=== PATIENT | female | born 1990 | race Caucasian/White ===

== ENCOUNTER 2016-02-26 16:01 | Outpatient (CLI) | payer BC ==
[~2016-02-26] VITALS: Ht 170.2 cm; Wt 59.0 kg
[~2016-02-26 16:01] MED LIST: CEPHALEXIN MONOHYDRATE 500 MG CAP PO SCH
[2016-02-26] MEDS ORDERED: LACTATED RINGER'S 1000ML 500 ML IV ONE (16:26)
[2016-02-26] MEDS ORDERED: LACTATED RINGER'S 1000ML 1,000 ML IV SCH (16:26)
[2016-02-26 17:29] LABS: URINE APPEARANCE CLOUDY (CLEAR); URINE BILIRUBIN NEG (NEG); URINE COLOR DK YELLOW; URINE EPITHELIAL CELL AUTO >30 /lpf (0-5); URINE NITRITE NEG (NEG); URINE SPECIFIC GRAVITY 1.015 (1.000-1.030); UROBILINOGEN NEG (NEG); ZZUR CULT IF INDIC CLEAN CATCH YES
[2016-02-26 17:30] LABS: MANUAL MICROSCOPIC REQUIRED? NO; REVIEW REQ? NO
[2016-02-26] MEDS ORDERED: TERBUTALINE SULFATE 1 MG/ML VIAL SQ ONE (17:30)
[2016-02-26] MEDS ORDERED: TERBUTALINE SULFATE 1 MG/ML VIAL ONE (17:37)
[2016-02-26] MEDS ORDERED: CEPHALEXIN MONOHYDRATE 500 MG CAP PO SCH (20:00)
[2016-02-26] MEDS ORDERED: PRENTAB26 PO (20:12)
--- NOTE | 2016-02-26 20:14 | Discharge Instructions ---
Discharge Instructions Admission Reason for Admission: Bleeding Discharge Discharge Diagnosis / Problem: UTI Discharge Goals Goal(s): Continuing OB care Activity Recommendations Activity Limitations: as noted below Lifting Limitations: no more than 10 pounds Exercise/Sports Limitations: until after follow-up appointment May Resume Sexual Activity: after follow-up appointment Shower/Bathe: no limitations Driving or Machine Use: no limitations ACTIVITY RECOMMENDATIONS: See Labor Sheet. SPECIAL CARE INSTRUCTIONS: Call Doctor if: * Regular contractions every 5 minutes or greater than 4 contractions in one hour. * Bleeding * Water breaks or is leaking * Decreased movement * Fever >100.4 degrees F * Pain not relieved by routine measures or pain medication ordered. FOLLOW UP VISIT: Return to Labor and Delivery on for /call for appointment time . Follow-up Visit with: When: . Current Hospital Diet Patient's current hospital diet: Discharge Diet Recommended Diet: Regular Diet Pending Studies Studies pending at discharge: yes List of pending studies: Urine culture Call office on 02/27 morning Medical Emergencies . Who to Call and When: Medical Emergencies: If at any time you feel your situation is an emergency, please call 911 immediately. . Non-Emergent Contact Non-Emergency issues call your: Primary Care Provider, Community Support Associate Call Non-Emergent contact if: your pain is not controlled . . "Provider Documentation" section prepared by Vimal Romano. VTE Core Measure Inpt VTE Proph given/why not?: Treatment not indicated
[2016-02-26 20:50] VITALS: Ht 170.2 cm; Wt 59.0 kg
[2016-02-27] MEDS ORDERED: CEPHALEXIN 500MG HOME PACK 1 EA BTL PO SCH (04:00)
[2016-04-19] MEDS ORDERED: MTR600X PO (09:52)
== END 2016-02-26 21:00 | disposition home or self-care (01) ==
LOC: C.OPB 16:01 → EDBD 16:01 → C.OBG 16:01 → C.OPB 21:00
PROVIDERS: ATTEND Obstetrics & Gynecology
DX: O62.9 Abnormality of forces of labor, unspecified (principal); O99.283 Endocrine, nutritional and metabolic diseases complicating pregnancy, third trimester; E86.0 Dehydration; O99.333 Smoking (tobacco) complicating pregnancy, third trimester; Z3A.33 33 weeks gestation of pregnancy

== ENCOUNTER 2016-03-20 18:57 | Outpatient (CLI) | payer BC ==
[~2016-03-20] VITALS: Ht 167.6 cm; Wt 64.0 kg
[~2016-03-20 18:57] MED LIST changes: -CEPHALEXIN MONOHYDRATE 500 MG CAP PO SCH; +PRENTAB26 PO
[2016-03-20 19:51] VITALS: Ht 167.6 cm; Wt 64.0 kg
[2016-03-20] MEDS ORDERED: CITA10TA8 PO (19:55)
--- NOTE | 2016-03-20 20:14 | Progress Note ---
Progress Note 25 F P0000 at 36.5 weeks here for possible labor check. Cervix remains closed after no change from prior exam. FHT Cat 1. Will discharge home not in labor.
== END 2016-03-20 20:15 ==
LOC: C.OPB 18:57 → C.OBG 18:58 → C.OPB 20:15
PROVIDERS: ATTEND Obstetrics & Gynecology
DX: Z34.03 Encounter for supervision of normal first pregnancy, third trimester (principal)

== ENCOUNTER 2016-04-16 06:36 | Inpatient (IN) | payer BC ==
[~2016-04-16] VITALS: Ht 170.2 cm; Wt 66.0 kg
[~2016-04-16 06:36] MED LIST changes: +CITA10TA8 PO
[2016-04-16] MEDS ORDERED: LACTATED RINGER'S 1000ML 1,000 ML IV PRN (07:21)
[2016-04-16] MEDS ORDERED: MISOPROSTOL 25 MCG TAB PV ONE (07:30)
--- NOTE | 2016-04-16 07:42 | Progress Note ---
Progress Note Date of Service Apr 16, 2016. Progress Note Admit Note 25 F P0000 at 40.4 weeks admitted for induction of labor for growth lag and post-dates. GBS is negative. Cervix is finger-tip/70/-3/vertex/soft/ anterior. EFW 6-10. FHT Cat 1. Cytotec 25 mcg placed vaginally for cervical ripening.
[2016-04-16 07:58] LABS: HEMATOCRIT 37.6 % (37-47); MEAN CELL VOLUME 93.1 fL (80-100); MEAN CORPUSCULAR HEMOGLOBIN 33.4 pg (25-34); MEAN CORPUSCULAR HGB CONC 35.9 g/dl (32-36); MEAN PLATELET VOLUME 12.4 fL (7.4-10.4); PLATELET COUNT 213 K/uL (130-400); RED BLOOD COUNT 4.04 M/uL (4.2-5.4); WHITE BLOOD COUNT 17.23 K/uL (4.8-10.8)
[2016-04-16] MEDS ORDERED: [UNRECOGNIZED DRUG - CODE] (09:10)
[2016-04-16] MEDS ORDERED: VNTHFA/IN INH (09:11)
[2016-04-16 09:12] VITALS: Ht 170.2 cm; Wt 66.0 kg
--- NOTE | 2016-04-16 16:26 | Progress Note ---
Progress Note Date of Service Apr 16, 2016. Progress Note cervix 1.5/70/-3 T Cat 1
[2016-04-16] MEDS ORDERED: BUTORPHANOL TARTRATE 1 MG/ML VIAL IV PRN (20:30)
[2016-04-16] MEDS: LACTATED RINGER'S 1000ML 1,000 ML IV SCH (20:47)
[2016-04-16] MEDS ORDERED: EpHEDrine SULFATE INJ 50 MG/ML AMP ONE (23:39)
[2016-04-16] MEDS ORDERED: FENTANYL CITRATE INJ 50 MCG/1 ML 2 ML VIAL ONE (23:39)
[2016-04-16] MEDS ORDERED: FENTANYL 2MCG/ML ROPIV 1.25MG/ML 100ML BAG EPI ONE (23:39)
[2016-04-16] MEDS ORDERED: BUPIVACAINE 0.25% 30 ML VIAL ONE (23:39)
[2016-04-16] MEDS ORDERED: LACTATED RINGER'S 1000ML 500 ML IV PRN (23:42)
--- NOTE | 2016-04-16 23:42 | Progress Note ---
Progress Note Date of Service Apr 16, 2016. Progress Note cervix /-2 will start oxytocin to augment contractions EFW 6-10 FHT Cat 1 for epidural
[2016-04-16] MEDS ORDERED: OXYTOCIN 30 UNITS/500ML NSS IV PRN (23:45)
[2016-04-17] MEDS: LACTATED RINGER'S 1000ML 1,000 ML IV SCH ×2 (00:30→09:12)
[2016-04-17] MEDS ORDERED: NALOXONE HCL INJ 1 MG in SODIUM CHLORIDE 0.9% 1000ML 1,000 ML IV PRN (00:54)
[2016-04-17] MEDS ORDERED: LACTATED RINGER'S 1000ML 500 ML IV PRN (00:54)
[2016-04-17] MEDS ORDERED: EpHEDrine SULFATE INJ 50 MG/ML AMP IV PRN (01:00)
[2016-04-17] MEDS ORDERED: DiphenhydrAMINE HCL 50 MG/ML VIAL IV PRN (01:00)
[2016-04-17] MEDS ORDERED: ONDANSETRON INJ 2 MG/ML 2 ML VIAL IV PRN (01:00)
[2016-04-17] MEDS ORDERED: NALBUPHINE HCL INJ 10 MG/ML AMP IV PRN (01:00)
[2016-04-17] MEDS ORDERED: NALOXONE HCL INJ 0.4 MG/1 ML VIAL/CARP IV PRN (01:00)
[2016-04-17] MEDS: FENTANYL 2MCG/ML ROPIV 1.25MG/ML 100ML BAG EPI PRN ×2 (07:06→07:59)
[2016-04-17] MEDS ORDERED: METHYLERGONOVINE MALEATE 0.2 MG/ML AMP ONE (15:48)
[2016-04-17] MEDS ORDERED: METHYLERGONOVINE MALEATE 0.2 MG/ML AMP IM ONE (16:15)
[2016-04-17] MEDS ORDERED: ACETAMINOPHEN 325 MG TAB PO PRN (16:15)
[2016-04-17] MEDS ORDERED: SUPERCREAM 0.870 % 15GM JAR EXT PRN (16:15)
[2016-04-17] MEDS ORDERED: LANOLIN OINT EXT PRN ×2 (16:15)
[2016-04-17] MEDS ORDERED: OXYCODONE/ACETAMINOPHEN 5-325 TAB PO PRN (16:15)
[2016-04-17] MEDS ORDERED: OXYTOCIN 30 UNITS/500ML NSS IV PRN (16:15)
[2016-04-17] MEDS ORDERED: BENZOCAINE 20% AER SPR 82.5 GM CAN EXT PRN (16:15)
[2016-04-17] MEDS ORDERED: HYDROCORTISONE ACETATE 25 MG SUPP PR PRN (16:15)
--- NOTE | 2016-04-17 16:30 | OPERATIVE REPORT ---
DATE OF OPERATION: 04/17/2016 DELIVERY NOTE The patient delivered a live female in occiput anterior presentation. There was no nuchal cord. Infant was delivered. Cord was clamped and placed on mother's abdomen. Inspection of the perineum showed a midline second-degree laceration. Laceration was repaired with 2-0 Vicryl in layers. Rectal exam post-repair showed good sphincter tone. No sutures are palpated in the rectum. ESTIMATED BLOOD LOSS: 500 mL. COUNTS: All instruments are removed from the vagina and accounted for x2 including sponges and needles. FINDINGS: Apgars 8 and 9. I attest to the content of the Intraoperative Record and any orders documented therein. Any exceptio ns are noted below.
--- NOTE | 2016-04-17 16:43 | Anesthesia Procedure Note ---
Anesthesia Epidural Removal Nt Date & Time Apr 17, 2016 at 16:42 Vital Signs Pain Intensity: 0.0 Notes Mental Status: alert / awake / arousable, participated in evaluation Nausea / Vomiting: adequately controlled Pain: adequately controlled Airway Patency, RR, SpO2: stable & adequate BP & HR: stable & adequate Hydration State: stable & adequate Neuraxial Anesthesia: was administered Anesthetic Complications: no major complications apparent, pt satisfied with anesthetic care Epidural: removed without complications, with tip intact
[2016-04-17] MEDS: IBUPROFEN 600 MG TAB PO PRN (17:35)
[2016-04-17] MEDS: ACETAMINOPHEN/CODEINE 300/30MG TAB PO PRN (18:22)
[2016-04-17 19:45] VITALS: BP 128/85; PULSE 85; TEMP 36.7; O2SAT 97
[2016-04-17] MEDS: DOCUSATE SODIUM 100 MG CAP PO SCH (19:45)
[2016-04-18] VITALS (7 sets, daily range): BP systolic 114–153; BP diastolic 70–96; PULSE 78–97; TEMP 36.5–36.7; O2SAT 97–99
[2016-04-18] MEDS: ACETAMINOPHEN/CODEINE 300/30MG TAB PO PRN ×3 (02:34→23:30)
[2016-04-18] MEDS: IBUPROFEN 600 MG TAB PO PRN ×3 (03:27→14:37)
[2016-04-18] MEDS: DOCUSATE SODIUM 100 MG CAP PO SCH ×2 (08:49→19:59)
[2016-04-18] MEDS: FERROUS SULFATE 325 MG TAB PO SCH (08:50)
--- NOTE | 2016-04-18 09:45 | OB/GYN Progress Note ---
[employer] Progress Note Date of Service Apr 18, 2016. Subjective conversation w/ patient Ambulation: ambulating normally Voiding: no voiding problems Passing Gas: Yes Diet Tolerance: Regular Diet Lochia: Moderate Feeding Type: Breast Feeding Pain: 04/18 Notes: Doing well, no concerns. Objective Vital Signs Date Time Temp Pulse Resp B/P Pulse Ox O2 Delivery O2 Flow Rate FiO2 04/18/16 07:58 36.5 78 16 114/77 99 Room Air 04/18/16 03:33 36.6 86 20 153/96 98 04/18/16 00:15 97 Room Air 04/18/16 00:15 36.7 85 20 117/70 97 04/17/16 19:45 36.7 85 20 128/85 97 04/17/16 19:45 97 Room Air Physical Exam General Appearance: WELL-APPEARING Respiratory/Chest: chest non-tender, lungs clear Cardiovascular: regular rate, rhythm Abdomen: normal bowel sounds, soft Fundus: Firm Extremities: normal range of motion, non-tender, no calf tenderness Laboratory Results Last 24 Hours Test 04/18/16 06:40 Hemoglobin 10.0 g/dL Hematocrit 29.0 % Assessment and Plan Post- Day Number: 1 Continue Routine Care: -Continue routine care -Anticipate d/c home tomorrow.
[2016-04-18] MEDS ORDERED: BISACODYL 5 MG TABEC PO SCH (20:00)
[2016-04-18] MEDS ORDERED: NURSING VERBAL MED ORDER ONE ×3 (20:45→23:15)
[2016-04-18] MEDS ORDERED: CITALOPRAM 20 MG TAB PO SCH (22:00)
[2016-04-18] MEDS ORDERED: CALCIUM CARBONATE 500 MG CHEWABLE PO PRN (23:15)
[2016-04-19] MEDS: IBUPROFEN 600 MG TAB PO PRN (05:44)
[2016-04-19] MEDS ORDERED: BISACODYL 10 MG SUPP PR PRN (07:00)
[2016-04-19 07:06] LABS: HEMATOCRIT 29.1 % (37-47); MEAN CELL VOLUME 95.1 fL (80-100); MEAN CORPUSCULAR HEMOGLOBIN 33.3 pg (25-34); MEAN CORPUSCULAR HGB CONC 35.1 g/dl (32-36); MEAN PLATELET VOLUME 12.3 fL (7.4-10.4); PLATELET COUNT 167 K/uL (130-400); RED BLOOD COUNT 3.06 M/uL (4.2-5.4); WHITE BLOOD COUNT 20.69 K/uL (4.8-10.8)
[2016-04-19 07:48] VITALS: BP 120/80; PULSE 96; TEMP 37.3
[2016-04-19] MEDS ORDERED: CITALOPRAM 20 MG TAB PO SCH (08:00)
[2016-04-19] MEDS: DOCUSATE SODIUM 100 MG CAP PO SCH (08:27)
[2016-04-19] MEDS: FERROUS SULFATE 325 MG TAB PO SCH (08:27)
[2016-04-19] MEDS ORDERED: MTR600X PO (09:52)
--- NOTE | 2016-04-19 09:54 | Discharge Instructions ---
Discharge Instructions Date of Service Apr 19, 2016. Admission Reason for Admission: Induction Discharge Discharge Diagnosis / Problem: term delivered Discharge Goals Goal(s): Routine recovery after delivery Activity Recommendations Activity Limitations: as noted below Lifting Limitations: no more than 10 pounds, gradually increase as tolerated Exercise/Sports Limitations: gradually increase as tolerated May Resume Sexual Activity: after follow-up appointment Shower/Bathe: no limitations Driving or Machine Use: resume 3 days after discharge . Instructions / Follow-Up Instructions / Follow-Up ACTIVITY RECOMMENDATIONS: * Gradual return to full activity over the next 2-3 weeks. * No lifting - nothing heavier than baby over the next 2-3 weeks. * Do not engage in vigorous exercise, sexual activity or sports until cleared by your physician. * Do not drive or operate any motorized equipment until cleared by your physician. * You may shower/bathe daily. BREAST CARE: If you are not breast feeding: * Wear a supportive bra 24 hours a day for one to two weeks. * Avoid stimulating your breasts and nipples as much as possible during the first few weeks after delivery. * When taking a shower, have the warm water hit your back, not breasts. * When your breasts feel full, apply ice packs. Usually three to four times a day helps ease the discomfort. * Take a mild pain medication (Tylenol/Motrin) when you are uncomfortable. If breast feeding: * Use breast milk to lubricate nipples. Lansinoh cream may be used for sore nipples. You do not need to remove cream prior to breast feeding. If using a different brand of cream, check the label for directions regarding removal of cream prior to nursing. * Wear a supportive bra. * If having problems with breasts or breast feeding, call a insolvency consultant or your health care provider. EPISIOTOMY CARE: After delivery, if you have an episiotomy (stitches), the following steps will ease discomfort and aid healing. * For the first 24 hours after delivery, place ice packs next to your episiotomy to help reduce swelling. * After the first 24 hour-period, sitz baths, either portable or in the tub, are suggested. A shower with a shower arm sprayed over the episiotomy may be comforting. * Isidra care should be done after each voiding and bowel movement. Squirt warm water from a plastic bottle over the perineum (region of the body between the anus and urinary opening) and pat dry. * Use Dermoplast to ease discomfort. Shake container. [place] directly over the episiotomy. * Place a Tucks on a clean sanitary pad next to your episiotomy. OVER THE COUNTER MEDICATION: * For discomfort or pain, you may use Acetaminophen (Tylenol), Ibuprofen (Advil ), or Naproxen (Aleve) following the package directions. * For constipation you may use Colace following the package directions. SPECIAL CARE INSTRUCTIONS: When you are discharged from the hospital, it is important for you to follow the instructions listed below: * During the first week at home, you should be able to care for yourself and your baby. In addition, the usual light household activities are encouraged. * Limit your activities to the way you feel. Do not try to clean the house or move furniture. Be sensible. * If you actively engage in sports and have done so up until the time of your delivery, you may resume these activities as soon as you feel able. This may take up to one month or even longer. Use good judgment. * Continue to take your vitamins for at least six weeks after the of your baby. * Your diet need not be limited unless you were on a special diet before your delivery. Breast-feeding mothers need around 2500 calories per day and at least 64-80 ounces of fluid per day (8 to 10 glasses). * You should eat foods from the four major food groups. Crash diets or fad diets are to be avoided. Eating lean meats, fresh fruits and vegetables, low-fat dairy products, high fiber foods and a regular exercise program, will help you get back to your pre- weight without putting your health at risk. * Constipation is sometimes a problem after delivery. Take a mild laxative as needed. If breast feeding, Milk of Magnesia is acceptable to use. You may use a suppository or Fleets enema if no episiotomy. * A daily shower or tub bath is suggested. Be sure to thoroughly and gently dry the perineum. * A bloody vaginal discharge will usually continue until around four weeks post . A small amount of bleeding may continue for as long as six weeks. Vaginal discharge changes from the bright red bleeding after delivery to pink then brownish and finally yellowish-pink before becoming white and disappearing. * Bleeding may increase with activity. Your first period may come in 4-8 weeks. If you are breast feeding, your period may be delayed even longer. * Dane (sex) can begin whenever both you and your partner feel comfortable and do not have any form of genital infection. It is recommended that you wait until after your return appointment and discuss with your physician. If you have questions, please talk to your health care practitioner. A condom should be used to prevent infection and . * Foreplay, gentle intercourse and lubrication is very important the first several times to prevent pain. A water-based lubricant such as K-Y jelly or Astroglide may be used. * Tampons may be used six weeks after delivery. * Douching should be avoided for 6 weeks after delivery. * If you have RH negative blood and your baby is RH positive, you will receive RHOGAM by injection prior to discharge. The nurse will give you a card to keep with you that has the date and place that you received RHOGAM after delivery. * During your care, you had a Rubella screen done to check for the presence of rubella antibodies in your blood. If your test was negative, you will receive a Rubella vaccine prior to discharge. This vaccine may cause a fever, soreness at the injection site and flu-like symptoms. If these symptoms persist, notify your health care practitioner. is not advised for three months after a Rubella vaccine. There is a higher chance of having a baby with defects if conceived within three months of getting the vaccine. * If you were discharged 24 hours from delivery or before 48 hours: Visiting nurses will come to your home 48 hours after discharge to assess you and your baby. The visiting nurse will meet with you while you are in the hospital to arrange a time and get directions to your home. * Verbalizes understanding of car seat law as reviewed with patient nursing. * Car Seat hand-out given and reviewed with patient by nursing. * Shaken baby information reviewed with patient by nursing. Call you doctor if: * Heavy bleeding (saturating several pads an hour) or passing clots the size of your fist. * A fever >101 degrees F (38.3 degrees C) on two occasions four hours apart and/or chills. * Unusual pain in the pelvic or vaginal areas. * "Baby Blues" lasting longer than two weeks. If you have any questions or concerns, call your health care practitioner at . FOLLOW-UP VISIT: * Please call the office at to schedule a 6 week examination. It is important you keep this appointment. * It is important for you to make arrangements for either yearly or twice yearly check-ups thereafter. Current Hospital Diet Patient's current hospital diet: Regular Diet Discharge Diet Recommended Diet: Regular OB Diet Fluid Restriction: None Pending Studies Studies pending at discharge: no Medical Emergencies . Who to Call and When: Medical Emergencies: If at any time you feel your situation is an emergency, please call 911 immediately. . Non-Emergent Contact Non-Emergency issues call your: Primary Care Provider . . "Provider Documentation" section prepared by Shane Edwards. VTE Core Measure Inpt VTE Proph given/why not?: Treatment not indicated
--- NOTE | 2016-04-19 09:57 | OB/GYN Progress Note ---
[employer] Progress Note Date of Service Apr 19, 2016. Subjective conversation w/ patient, physical exam Ambulation: ambulating normally Voiding: no voiding problems Passing Gas: Yes Diet Tolerance: Regular Diet Lochia: Small Feeding Type: Bottle Feeding Objective Vital Signs Date Time Temp Pulse Resp B/P Pulse Ox O2 Delivery O2 Flow Rate FiO2 04/19/16 07:48 37.3 96 20 120/80 Room Air 04/19/16 07:00 Room Air 04/18/16 23:20 Room Air 04/18/16 23:20 36.7 86 20 120/75 Room Air 04/18/16 15:46 36.6 97 16 124/76 Room Air 04/18/16 15:35 Room Air 04/18/16 11:43 36.6 94 18 130/81 98 Room Air Physical Exam General Appearance: WELL-APPEARING, NO APPARENT DISTRESS Abdomen: non tender, soft Fundus: Firm Extremities: non-tender, normal inspection, no pedal edema, no calf tenderness Laboratory Results Last 24 Hours Test 04/19/16 06:31 White Blood Count 20.69 K/uL Red Blood Count 3.06 M/uL Hemoglobin 10.2 g/dL Hematocrit 29.1 % Mean Corpuscular Volume 95.1 fL Mean Corpuscular Hemoglobin 33.3 pg Mean Corpuscular Hemoglobin Concent 35.1 g/dl RDW Standard Deviation 45.1 fL RDW Coefficient of Variation 13.1 % Platelet Count 167 K/uL Mean Platelet Volume 12.3 fL Assessment and Plan Post- Day Number: 2 Continue Routine Care: discharged
[2016-04-19 10:10] VITALS: BP_DIAS 80; PULSE 96; TEMP 37.3
== END 2016-04-19 12:25 | disposition home or self-care (01) | DRG 775 ==
LOC: C.LD 06:36 → C.OBG 04-17 19:08
PROVIDERS: ADMIT Obstetrics & Gynecology; ATTEND Obstetrics & Gynecology
PROC: 0KQM0ZZ Repair Perineum Muscle, Open Approach (ICD-10-PCS; principal; 2016-04-17)
PROC: 3E0P7GC Introduction of Other Therapeutic Substance into Female Reproductive, Via Natural or Artificial Opening (ICD-10-PCS; principal; 2016-04-17)
PROC: 10E0XZZ Delivery of Products of Conception, External Approach (ICD-10-PCS; principal; 2016-04-17)
DX: O48.0 Post-term pregnancy (principal); O70.1 Second degree perineal laceration during delivery; O36.5930 Maternal care for other known or suspected poor fetal growth, third trimester, not applicable or unspecified; Z37.0 Single live birth; Z3A.40 40 weeks gestation of pregnancy; Z79.899 Other long term (current) drug therapy